=== PATIENT | female | born 1935 | race Caucasian/White ===

== ENCOUNTER 2019-01-29 18:56 | Emergency (ER) | payer OTHER, BC ==
[2019-01-29 19:30] VITALS: BP 180/94; PULSE 92; TEMP 97.5; BMI 22.6
[2019-01-29] MEDS ORDERED: DIPHTH,PERTUSS(ACELL),TET 0.5 ML DISP.SYRIN IM ONE ×2 (20:20→20:29)
[2019-01-29] MEDS ORDERED: CEPHALEXIN MONOHYDRATE 500 MG CAPSULE (UD) PO ONE (20:21)
[2019-01-29] MEDS ORDERED: CEPHALEXIN MONOHYDRATE 250 MG CAPSULE (FP) ONE (20:29)
--- NOTE | 2019-01-30 03:29 | PDOC ---
Documentation entered by Doyle Can SCRIBE, acting as scribe for Rachel John MD. Rachel John MD: This documentation has been prepared by the Juan José solorio Xhesika, SCRIBE, under my direction and personally reviewed by me in its entirety. I confirm that the documentation accurately reflects all work, treatment, procedures, and medical decision making performed by me. History of Present Illness - General Chief Complaint: Injury Stated Complaint: FALL INJURED LEFT HAND History Source: Patient Exam Limitations: No Limitations - History of Present Illness Initial Comments: 01/29/19 20:31 The patient is an 83 year old female, with a significant PMH of HTN, spinal stenosis, scoliosis, sciatica, and arthritis who presents to the emergency department with L hand swelling s/p fall at 3:30pm. The patient states she was going to [employer], did not lift her leg high enough, tripped on the curb and fell on her L side. The patient states the security at [employer] walked her to her car, turned her AC on, cleaned her bleeding on her hand, put some ointment cream and wrapped her hand. The patient denies LOC, hitting her head or neck. The patient denies any pain. Patient does not remember when her last tetanus was. The patient denies chest pain, shortness of breath, headache and dizziness. Denies fever, chills, nausea, vomiting, diarrhea and constipation. Denies dysuria, frequency, urgency and hematuria. Allergies: NKA Social history: Social smoker PCP: Linnea Sharp Orthopedist: Dr. Correa Past History - Past Medical History Allergies/Adverse Reactions: Allergies Allergy/AdvReac Type Severity Reaction Status Date / Time No Known Allergies Allergy Unverified 01/29/19 18:58 Home Medications: Ambulatory Orders Meloxicam 1 tab PO DAILY #60 11/04/14 Cephalexin Monohydrate [Keflex -] 500 mg PO Q8H #12 capsule 01/29/19 Review of Systems - Review of Systems Able to Perform ROS?: Yes Comments:: 01/29/19 20:31 GENERAL/CONSTITUTIONAL: No fever or chills. No weakness. HEAD, EYES, EARS, NOSE AND THROAT: No change in vision. No ear pain or discharge. No sore throat. CARDIOVASCULAR: No chest pain or shortness of breath. RESPIRATORY: No cough, wheezing, or hemoptysis. GASTROINTESTINAL: No nausea, vomiting, diarrhea or constipation. GENITOURINARY: No dysuria, frequency, or change in urination. MUSCULOSKELETAL:(+) L hand swelling. No neck or back pain. SKIN: No rash NEUROLOGIC: No headache, vertigo, loss of consciousness, or change in strength/ sensation. ENDOCRINE: No increased thirst. No abnormal weight change. HEMATOLOGIC/LYMPHATIC: No anemia, easy bleeding, or history of blood clots. ALLERGIC/IMMUNOLOGIC: No hives or skin allergy. *Physical Exam - Physical Exam Comments: 01/29/19 19:47 GENERAL: Awake, alert, and fully oriented, in no acute distress HEAD: No signs of trauma EYES: PERRLA, EOMI, sclera anicteric, conjunctiva clear ENT: Auricles normal inspection, hearing grossly normal, nares patent, oropharynx clear without exudates. Moist mucosa NECK: Normal ROM, supple, no lymphadenopathy, JVD, or masses LUNGS: Breath sounds equal, clear to auscultation bilaterally. No wheezes, and no crackles HEART: Regular rate and rhythm, normal S1 and S2, no murmurs, rubs or gallops ABDOMEN: Soft, nontender, normoactive bowel sounds. No guarding, no rebound. No masses EXTREMITIES: (+) L upper extremity moderate edema or ecchymosis. (+) L dorsum of hand with non bleeding 4cm irregular laceration of L aspect of 5th finger, majority is superficial with 1cm central area full thickness. Neurovascular intact of all fingers. No obvious deformity present. No point tenderness to palpation. (+) 2 by 2 nonbleeding superficial abrasion of superior aspect of L shoulder. No edema or point tenderness. (+) 2 by 2 nonbleeding superficial abrasion of lateral aspect of L elbow. No deformity present in shoulder, elbow or forearm. (+) Full painless ROM of shoulder and elbow. No clubbing or cyanosis. NEUROLOGICAL: Cranial nerves II through XII grossly intact. Normal speech, normal gait Procedures - Laceration/Wound Repair Right Distal Dorsal 5th digit Wound Length: 2.6 to 5.0 cm Wound Explored: clean Wound's Depth, Shape: irregular Irrigated w/ Saline: Yes Betadine Prep: No (Hibiclens/ethanol) Anesthesia: 1% Lidocaine Amount of Anesthetic (ccs): 3 Wound Repaired With: Sutures Suture Size/Type: 5:0 Sterile Dressing Applied: Yes Splint Applied: Yes Progress: Left fifth finger was prepped using Hibiclens/ethanol and sterilely draped. 3 mL of 1% lidocaine infiltrated into the wound for local anesthesia. Wound was early irrigated using 60 mL sterile saline. No evidence of foreign body present. Edges of deep section of the laceration were closely approximated and repaired using 5-0 nylon sutures. Wound covered in Bacitracin ointment with sterile gauze pad placed on wound. Splint applied because of presence of fracture Patient tolerated the procedure well Progress Note - Progress Note Progress Note: Left hand x-ray performed. Preliminary interpretation by me: Mildly displaced transverse fracture of the mid portion of the proximal phalanx. No other obvious fracture or dislocation injuries present. Repair of the wound performed as noted above Patient tolerated procedure well. First dose of antibiotic(Keflex 500mg) given in the ER Boostrix tetanus immunization given. *DC/Admit/Observation/Transfer Diagnosis at time of Disposition: Fracture of proximal phalanx of digit of left hand Qualifiers: Fracture type: open Qualified Code(s): S62.619B - Displaced fracture of proximal phalanx of unspecified finger, initial encounter for open fracture Laceration of finger of left hand Qualifiers: Encounter type: initial encounter Finger: little finger Damage to nail status: without damage Foreign body presence: without foreign body Qualified Code(s): S61.217A - Laceration without foreign body of left little finger without damage to nail, initial encounter - Discharge Dispostion Disposition: HOME Condition at time of disposition: Stable - Prescriptions Prescriptions: Cephalexin Monohydrate [Keflex -] 500 mg PO Q8H #12 capsule - Referrals Referrals: Kevin Correa MD [Staff Physician] - Angeline Mcgowan [Staff Physician] - - Patient Instructions Printed Discharge Instructions: How to Care for a Laceration After Repair, Finger Fracture Additional Instructions: Keep original bandage and splint intact, as dry as possible, until seen by your orthopedist Elevate left hand as much as possible for the next 48 hours Call your orthopedist, Dr. Correa, tomorrow to arrange follow-up within the next 5 days After original bandage removed, can leave wound open with bacitracin to surface of wound Keflex 500 mg 3 times a day for 4 days (next dose tomorrow morning) Have sutures removed on February 05, either by or here Return here or see your doctor if wound becomes more painful/swollen/red - Post Discharge Activity
== END 2019-01-29 20:42 | disposition home or self-care (01) ==
LOC: FER 18:56
PROC: 0HQGXZZ Repair Left Hand Skin, External Approach (ICD-10-PCS; principal; 2019-01-29)
PROC: 2W3KX1Z Immobilization of Left Finger using Splint (ICD-10-PCS; 2019-01-29)
PROC: 3E0234Z Introduction of Serum, Toxoid and Vaccine into Muscle, Percutaneous Approach (ICD-10-PCS; 2019-01-29)
DX: S62.617B Displaced fracture of proximal phalanx of left little finger, initial encounter for open fracture (principal); W18.39XA Other fall on same level, initial encounter; Y93.89 Activity, other specified; Y92.512 Supermarket, store or market as the place of occurrence of the external cause; I10 Essential (primary) hypertension; M41.9 Scoliosis, unspecified
CPT/HCPCS: 73130-TC-LT-FY; 90715; 99282-25

== ENCOUNTER 2021-12-08 04:22 | Day surgery (SDC) | payer OTHER, BC ==
[2021-12-06 13:18] VITALS: BMI 22.6
[2021-12-08] MEDS ORDERED: FENTANYL CITRATE/PF 50 MCG/ML VIAL ONE ×2 (13:23→13:39)
[2021-12-08] MEDS ORDERED: PROPOFOL 20 ML ONE ×3 (13:24→14:10)
[2021-12-08] MEDS ORDERED: GENTAMICIN 80MG PREMIX BAG IVPB ONE (13:30)
[2021-12-08] MEDS ORDERED: ceFAZolin SODIUM 1 GM VIAL IVPB ONE (13:30)
[2021-12-08] MEDS ORDERED: oxyCODONE HCL 5 MG TABLET PO PRN ×2 (13:59→14:12)
[2021-12-08] MEDS ORDERED: hydrALAZINE HCL 20 MG/ML VIAL IVPUSH ONE ×4 (14:00→15:00)
[2021-12-08] MEDS ORDERED: ELECTROLYTE-148 SOLN 1,000 ML IV SCH (14:00)
[2021-12-08] MEDS ORDERED: DEXAMETHASONE SOD PHOSPHATE 4 MG/1 ML VIAL ONE (14:04)
[2021-12-08] MEDS ORDERED: ONDANSETRON 4 MG/2 ML VIAL IVPUSH PRN (14:12)
[2021-12-08] MEDS ORDERED: PROMETHAZINE HCL 25 MG/1 ML VIAL IVPUSH PRN (14:12)
[2021-12-08] MEDS ORDERED: LACTATED RINGERS SOLUTION 1,000 ML IV SCH (14:15)
[2021-12-08] MEDS ORDERED: hydrALAZINE HCL 20 MG/ML VIAL ONE (14:34)
[2021-12-08 16:42] VITALS: BP 148/72; PULSE 77; TEMP 97.7
== END 2021-12-08 17:00 | disposition home or self-care (01) ==
LOC: JASU-SURG 04:22
PROVIDERS: ATTEND Urology
PROC: 0T768DZ Dilation of Right Ureter with Intraluminal Device, Via Natural or Artificial Opening Endoscopic (ICD-10-PCS; principal; 2021-12-08 14:00)
PROC: 0T9680Z Drainage of Right Ureter with Drainage Device, Via Natural or Artificial Opening Endoscopic (ICD-10-PCS; 2021-12-08 14:00)
DX: N13.0 Hydronephrosis with ureteropelvic junction obstruction (principal); N20.0 Calculus of kidney
CPT/HCPCS: 76000-TC-FY; 94760

== ENCOUNTER 2021-12-27 04:55 | Day surgery (SDC) | payer OTHER, BC ==
[2021-12-26 12:22] VITALS: BMI 22.6
[2021-12-27] MEDS ORDERED: MIDAZOLAM HCL 2 MG/2 ML SINGLE DOSE VIAL ONE (09:54)
[2021-12-27] MEDS ORDERED: FENTANYL CITRATE/PF 50 MCG/ML VIAL ONE ×2 (09:54)
[2021-12-27] MEDS ORDERED: SODIUM CHLORIDE 500 ML IV ONE (10:40)
[2021-12-27] MEDS ORDERED: FENTANYL CITRATE/PF 50 MCG/ML VIAL IVPUSH ONE (10:40)
[2021-12-27] MEDS ORDERED: MIDAZOLAM HCL 2 MG/2 ML SINGLE DOSE VIAL IVPUSH ONE (10:40)
[2021-12-27 14:43] VITALS: BP 146/78; PULSE 71; TEMP 98
== END 2021-12-27 14:15 | disposition home or self-care (01) ==
LOC: JRADIR 04:55
PROVIDERS: ATTEND Urology
PROC: 0TC68ZZ Extirpation of Matter from Right Ureter, Via Natural or Artificial Opening Endoscopic (ICD-10-PCS; principal; 2021-12-27)
PROC: 0T768DZ Dilation of Right Ureter with Intraluminal Device, Via Natural or Artificial Opening Endoscopic (ICD-10-PCS; 2021-12-27)
DX: N20.1 Calculus of ureter (principal)
CPT/HCPCS: 50433; C1769

== ENCOUNTER 2021-12-29 04:17 | Day surgery (SDC) | payer OTHER, BC ==
[2021-12-26 17:28] VITALS: BMI 22.6
[2021-12-29] MEDS ORDERED: SUCCINYLCHOLINE CHLORIDE 200 MG/10 ML SYRINGE ONE (11:18)
[2021-12-29] MEDS ORDERED: PROPOFOL 20 ML ONE (11:18)
[2021-12-29] MEDS ORDERED: MIDAZOLAM HCL 2 MG/2 ML SINGLE DOSE VIAL ONE (11:19)
[2021-12-29] MEDS ORDERED: GENTAMICIN 80MG PREMIX BAG IVPB ONE (11:30)
[2021-12-29] MEDS ORDERED: GENTAMICIN SO4 80 MG/2 ML VIAL ONE (11:33)
[2021-12-29] MEDS ORDERED: oxyCODONE HCL 5 MG TABLET PO PRN (12:19)
[2021-12-29] MEDS ORDERED: ONDANSETRON 4 MG/2 ML VIAL IVPUSH PRN (12:25)
[2021-12-29] MEDS ORDERED: DEXTROSE 5%-0.45% SALINE 1,000 ML IV SCH (12:30)
[2021-12-29 18:01] VITALS: BP 117/72; PULSE 78; TEMP 85
== END 2021-12-29 17:30 | disposition home or self-care (01) ==
LOC: JASU-SURG 04:17
PROVIDERS: ATTEND Urology
PROC: 0TC68ZZ Extirpation of Matter from Right Ureter, Via Natural or Artificial Opening Endoscopic (ICD-10-PCS; principal; 2021-12-29 10:15)
PROC: 0T768DZ Dilation of Right Ureter with Intraluminal Device, Via Natural or Artificial Opening Endoscopic (ICD-10-PCS; 2021-12-29 10:15)
PROC: 0TP5X0Z Removal of Drainage Device from Kidney, External Approach (ICD-10-PCS; 2021-12-29 10:15)
DX: N20.1 Calculus of ureter (principal)
CPT/HCPCS: 36415; 76000-TC-FY; 82360; 88300-TC; 94760

== ENCOUNTER 2022-02-14 13:11 | Emergency (ER) | payer OTHER, BC ==
[2022-02-14 13:40] VITALS: BP 141/75; PULSE 82; RESP 18; TEMP 98.1; BMI 22.4
[2022-02-14 15:41] LABS: BASO % 0.6 % (0-2.0); EOS % 0.9 % (0-4.5); HEMATOCRIT 44.6 % (32.4-45.2); HEMOGLOBIN 14.7 GM/dL (10.7-15.3); MCH 28.5 pg (25.7-33.7); MCHC 32.9 g/dl (32.0-36.0); MEAN CELL VOLUME 86.5 fl (80-96); MEAN PLT VOLUME 10.2 fl (7.5-11.1); MONO % 7.5 % (3.8-10.2); PLATELET COUNT 165 10^3/uL (134-434); RBC 5.16 M/mm3 (3.60-5.2); RDW 15.4 % (11.6-15.6); WHITE BLOOD COUNT 11.4 K/mm3 (4.0-10.0)
[2022-02-14 15:44] LABS: EPI CELLS 4 /uL (0-25.1); HYALINE CASTS 0 /uL (0-3.1); PH,URINE 5.5 (5.0-8.0); URINE APPEARANCE CLEAR; URINE BACTERIA 233 /uL (0-1359); URINE BILIRUBIN NEGATIVE (NEGATIVE); URINE COLOR YELLOW; URINE GLUCOSE (UA) NEGATIVE (NEGATIVE); URINE KETONE NEGATIVE (NEGATIVE); URINE LEUK ESTERASE TRACE (NEGATIVE); URINE NITRITE NEGATIVE (NEGATIVE); URINE PROTEIN NEGATIVE (NEGATIVE); URINE RBC 6 /uL (0-23.9); URINE UROBILINOGEN 0.2 mg/dL (0.2-1.0); URINE WBC 20 /uL (0-25.8)
[2022-02-14 16:08] LABS: ALBUMIN 3.4 g/dl (3.4-5.0); BLOOD UREA NITROGEN 16.5 mg/dL (7-18); CALCIUM 9.8 mg/dL (8.5-10.1)
[2022-02-14 16:11] LABS: CREATININE 0.9 mg/dL (0.55-1.3)
[2022-02-14 16:13] LABS: BILIRUBIN,TOTAL 0.9 mg/dL (0.2-1)
== END 2022-02-14 16:58 | disposition home or self-care (01) ==
LOC: JER 13:11
DX: N39.0 Urinary tract infection, site not specified (principal); N20.0 Calculus of kidney
CPT/HCPCS: 36415; 74176-TC; 80053; 81003; 83605; 85025; 87086; 87186; 99284-25